=== PATIENT | female | born 1960 | race African-American/Black ===

== ENCOUNTER 2017-02-23 11:41 | Emergency (ER) | payer MEDICARE, MEDICAID ==
[~2017-02-23] VITALS: Ht 180.3 cm; Wt 90.9 kg
[~2017-02-23 11:41] MED LIST: AMOXICILLIN500 MG PO; BACTRIM DS1 TAB PO; BENADRYL 50MG C50 MG PO; BENTYL20 MG PO; CIMETIDINE400 M1 PO; CITALOPRAM20 MG PO; DONNATA1 PO; GABAPENTIN300 MG PO; LISINOPRIL10 MG PO; LORTAB 5 OR; LORTAB5 OR; LYRICA100 MG PO; LYRICA150 MG OR; LYRICA20 MG/ML; LYRICA50 MG PO; MUPIROCIN2 % EX; NAPROSYN500 MG PO; NO HOME MEDS; PREDNISONE10 MG PO
[2017-02-23] MEDS ORDERED: LIPITOR20 M1 PO (12:00)
[2017-02-23] MEDS ORDERED: LISINOPRIL20 M1 PO (13:02)
[2017-02-23] MEDS ORDERED: ATORVASTATIN CA20 MG PO (13:02)
[2017-02-23] MEDS ORDERED: HYDROMORPHON8 MG PO (13:04)
[2017-02-23] MEDS ORDERED: TORADOL PO (13:15)
[2017-02-23 13:20] VITALS: BP 129/74
== END 2017-02-23 13:20 | disposition home or self-care (01) ==
LOC: ED 11:41
DX: S39.012A Strain of muscle, fascia and tendon of lower back, initial encounter (principal); I10 Essential (primary) hypertension; Z85.43 Personal history of malignant neoplasm of ovary; X58.XXXA Exposure to other specified factors, initial encounter

== ENCOUNTER 2017-04-21 01:10 | Emergency (ER) | payer MEDICARE, MEDICAID ==
[~2017-04-21] VITALS: Ht 180.3 cm; Wt 108.0 kg
[~2017-04-21 01:10] MED LIST changes: +ATORVASTATIN CA20 MG PO; +LIPITOR20 M1 PO; +LISINOPRIL20 M1 PO; +TORADOL PO
[2017-04-21] MEDS ORDERED: HYDROMORPHON8 MG PO (01:44)
[2017-04-21] MEDS ORDERED: LOTRISONE CREAM15 GM EX (03:13)
[2017-04-21 04:03] VITALS: BP 132/69
== END 2017-04-21 04:08 | disposition home or self-care (01) ==
LOC: ED 01:10
DX: B35.4 Tinea corporis (principal)

== ENCOUNTER 2018-06-04 07:14 | Day surgery (SDC) | payer MEDICARE, MEDICAID ==
[~2018-06-04] VITALS: Ht 180.3 cm; Wt 104.3 kg
[~2018-06-04 07:14] MED LIST changes: +HYDROMORPHON8 MG PO; +LOTRISONE CREAM15 GM EX; +LOVASTATIN10 M1 PO; +METFORMIN500 M2 PO; +ZESTRIL10 M1 PO
[2018-06-04 10:11] VITALS: BP 121/69
== END 2018-06-04 09:00 | disposition home or self-care (01) ==
LOC: ENDO 07:14
PROVIDERS: ATTEND Surgery
PROC: 0DJD8ZZ Inspection of Lower Intestinal Tract, Via Natural or Artificial Opening Endoscopic (ICD-10-PCS; principal; 2018-06-04)
DX: Z12.11 Encounter for screening for malignant neoplasm of colon (principal); Z85.43 Personal history of malignant neoplasm of ovary

== ENCOUNTER 2018-07-23 22:32 | Emergency (ER) | payer MEDICARE, MEDICAID ==
[~2018-07-23] VITALS: Ht 180.3 cm; Wt 103.0 kg
[2018-07-23] MEDS ORDERED: GENTAMICIN0.31 OS (23:17)
[2018-07-23] MEDS ORDERED: MOTRIN400 MG PO (23:18)
[2018-07-23 23:26] VITALS: BP 140/82
== END 2018-07-23 23:30 | disposition home or self-care (01) ==
LOC: ED 22:32
DX: H10.9 Unspecified conjunctivitis (principal); I10 Essential (primary) hypertension

== ENCOUNTER 2018-09-20 13:32 | Emergency (ER) | payer MEDICARE, MEDICAID ==
[~2018-09-20] VITALS: Ht 180.3 cm; Wt 100.0 kg
[~2018-09-20 13:32] MED LIST changes: +GENTAMICIN0.31 OS; +MOTRIN400 MG PO
[2018-09-20 14:27] VITALS: BP 131/83
== END 2018-09-20 14:35 | disposition home or self-care (01) ==
LOC: ED 13:32
DX: S61.210A Laceration without foreign body of right index finger without damage to nail, initial encounter (principal); I10 Essential (primary) hypertension; E11.9 Type 2 diabetes mellitus without complications; E78.00 Pure hypercholesterolemia, unspecified; X58.XXXA Exposure to other specified factors, initial encounter

== ENCOUNTER → 2018-12-26 | Outpatient (REF) | payer MEDICARE, MEDICAID | END | disposition home or self-care (01) | LOC: LAB 08:40 | PROVIDERS: ATTEND Student in an Organized Health Care Education/Training Program | DX: C56.9 Malignant neoplasm of unspecified ovary (principal) ==

== ENCOUNTER → 2019-01-29 | Outpatient (REF) | payer MEDICARE, MEDICAID | END | disposition home or self-care (01) | LOC: LAB 09:41 | PROVIDERS: ATTEND Student in an Organized Health Care Education/Training Program | DX: C56.9 Malignant neoplasm of unspecified ovary (principal) ==

== ENCOUNTER 2019-05-22 05:33 | Emergency (ER) | payer MEDICARE, MEDICAID ==
[~2019-05-22] VITALS: Ht 180.3 cm; Wt 108.0 kg
[2019-05-22] MEDS ORDERED: TRIPLE ANTI6 EX (06:13)
[2019-05-22 06:23] VITALS: BP 138/86
== END 2019-05-22 06:23 | disposition home or self-care (01) ==
LOC: ED 05:33
DX: S90.812A Abrasion, left foot, initial encounter (principal); I10 Essential (primary) hypertension; E11.9 Type 2 diabetes mellitus without complications; X58.XXXA Exposure to other specified factors, initial encounter

== ENCOUNTER 2020-05-30 18:05 | Emergency (ER) | payer MEDICARE, MEDICAID ==
[~2020-05-30] VITALS: Ht 180.3 cm; Wt 110.0 kg
[~2020-05-30 18:05] MED LIST changes: +TRIPLE ANTI6 EX
[2020-05-30 19:05] LABS: HEMATOCRIT 30.8 % (37.0-47.0); HEMOGLOBIN 9.6 g/dl (12.0-16.0); IMMATURE GRANULOCYTES 0.2 % (0.0-5.0); MEAN CELL VOLUME 69.5 fL CALC (80.0-100.0); MEAN CORPUSCULAR HGB 21.7 pG CALC (26.0-32.0); MEAN CORPUSCULAR HGB CONC 31.2 g/dL CAL (32.0-36.0); NEUT# 4.27 thou/uL (2.00-7.15); RED BLOOD COUNT 4.43 mill/uL (4.20-5.60); RED CELL DISTRI WIDTH 15.3 % (11.5-15.5)
[2020-05-30 19:13] LABS: ALBUMIN 3.9 g/dL (3.2-5.0); ALKALINE PHOSPHATASE 88 u/l (38-126); ANION GAP 9 (6-22 (CALC)); BILIRUBIN, TOTAL 0.3 mg/dL (0.0-1.4); BUN 11 mg/dL (7-17); BUN/CREATININE RATIO 11 (12-20 (CALC)); CARBON DIOXIDE 27 mmol/l (22-30); CHLORIDE 105 mmol/l (95-108); GFR 57 ML/MIN (>=60 (CALC)); GFR FOR AFR.AMER. > 60 ML/MIN (>=60 (CALC)); LIPASE 115 u/l (23-300); POTASSIUM 2.9 mmol/l (3.5-5.1); SGOT/AST 21 u/l (14-36); SODIUM 138 mmol/l (137-146); TOTAL PROTEIN 7.7 g/dL (6.3-8.2)
[2020-05-30 19:54] LABS: URINE BILIRUBIN - DIPSTICK NEGATIVE (NEGATIVE); URINE BLOOD DIPSTICK NEGATIVE (NEGATIVE); URINE COLOR YELLOW; URINE GLUCOSE - DIPSTICK NEGATIVE (NEGATIVE); URINE KETONE NEGATIVE (NEGATIVE); URINE LEUK ESTERASE NEGATIVE (NEGATIVE); URINE NITRITE - DIPSTICK NEGATIVE (Negative); URINE PROTEIN - DIPSTICK NEGATIVE (NEG-TRACE); URINE SPECIFIC GRAVITY 1.015
[2020-05-30 20:14] VITALS: BP 144/77
[2020-05-30] MEDS ORDERED: K-DUR/KLOR-CON20 MEQ PO ×2 (20:15)
[2020-05-30] MEDS ORDERED: ZOFRAN4 MG/TAB PO ×2 (20:15)
--- NOTE | 2020-06-02 16:15 | NUR ---
Notified patient of positive Covid results. Patient very upset and tearful. Patient denies difficulty breathing or fever. Advised patient to quarantine until contacted by the [facility] with further instructions. Advised patient to retrn to ED with any difficulty breathing or other urgent needs. Patient verbalized understanding.
== END 2020-05-30 20:15 | disposition home or self-care (01) ==
LOC: ED 18:05
PROVIDERS: Family Medicine
DX: U07.1 COVID-19 (principal); E87.6 Hypokalemia; I10 Essential (primary) hypertension; E11.9 Type 2 diabetes mellitus without complications; Z79.84 Long term (current) use of oral hypoglycemic drugs

== ENCOUNTER 2020-08-06 09:07 | Emergency (ER) | payer MEDICARE, MEDICAID ==
[~2020-08-06] VITALS: Ht 180.3 cm; Wt 104.2 kg
[~2020-08-06 09:07] MED LIST changes: +K-DUR/KLOR-CON20 MEQ PO; +ZOFRAN4 MG/TAB PO
[2020-08-06 09:40] VITALS: BP 106/76
[2020-08-06] MEDS ORDERED: CEPHALEXIN500 M1 PO (09:42)
[2020-08-06] MEDS ORDERED: NEOSPORI2 EX (09:42)
== END 2020-08-06 09:58 | disposition home or self-care (01) ==
LOC: ED 09:07
DX: S30.811A Abrasion of abdominal wall, initial encounter (principal); L08.9 Local infection of the skin and subcutaneous tissue, unspecified; I10 Essential (primary) hypertension; E11.9 Type 2 diabetes mellitus without complications; X58.XXXA Exposure to other specified factors, initial encounter

== ENCOUNTER 2020-09-07 22:53 | Emergency (ER) | payer MEDICARE, MEDICAID ==
[~2020-09-07] VITALS: Ht 180.3 cm; Wt 109.0 kg
[~2020-09-07 22:53] MED LIST changes: +CEPHALEXIN500 M1 PO; +NEOSPORI2 EX
[2020-09-07 23:30] VITALS: BP 101/63
[2020-09-07] MEDS ORDERED: [UNRECOGNIZED DRUG - OTHER] TOP (23:36)
== END 2020-09-07 23:30 | disposition home or self-care (01) ==
LOC: ED 22:53
DX: B85.3 Phthiriasis (principal); I10 Essential (primary) hypertension; E11.9 Type 2 diabetes mellitus without complications

== ENCOUNTER 2020-09-10 00:43 | Emergency (ER) | payer MEDICARE, MEDICAID ==
[~2020-09-10] VITALS: Ht 180.3 cm; Wt 109.0 kg
[~2020-09-10 00:43] MED LIST changes: +[UNRECOGNIZED DRUG - OTHER] TOP
[2020-09-10] MEDS ORDERED: BENADRY2 EX (01:21)
[2020-09-10 02:12] VITALS: BP 115/61
== END 2020-09-10 02:12 | disposition home or self-care (01) ==
LOC: ED 00:43
DX: R21 Rash and other nonspecific skin eruption (principal); I10 Essential (primary) hypertension; E11.9 Type 2 diabetes mellitus without complications

== ENCOUNTER 2021-02-27 | Emergency (ER) | payer OTHER, MEDICARE, MEDICAID ==
[~2021-02-27] MED LIST changes: +BENADRY2 EX
[2021-02-27] MEDS ORDERED: GLIPIZIDE ER5 M1 PO (15:59)
[2021-02-27] MEDS ORDERED: LISINOPRIL5 MG PO (16:00)
[2021-02-27] MEDS ORDERED: FLEXERIL5 M1 PO (17:52)
== END 2021-02-27 18:40 | disposition home or self-care (01) | DRG 563 ==
DX: S29.012A Strain of muscle and tendon of back wall of thorax, initial encounter (principal); I10 Essential (primary) hypertension; E11.40 Type 2 diabetes mellitus with diabetic neuropathy, unspecified; Z79.84 Long term (current) use of oral hypoglycemic drugs; V43.62XA Car passenger injured in collision with other type car in traffic accident, initial encounter

== ENCOUNTER 2021-07-17 13:30 | Emergency (ER) | payer MEDICARE, MEDICAID ==
[~2021-07-17] VITALS: Ht 180.3 cm; Wt 114.0 kg
[~2021-07-17 13:30] MED LIST changes: +FLEXERIL5 M1 PO; +GLIPIZIDE ER5 M1 PO; +LISINOPRIL5 MG PO
[2021-07-17 15:48] VITALS: BP 120/72
== END 2021-07-17 15:52 | disposition home or self-care (01) ==
LOC: ED 13:30
DX: S10.96XA Insect bite of unspecified part of neck, initial encounter (principal); I10 Essential (primary) hypertension; E11.40 Type 2 diabetes mellitus with diabetic neuropathy, unspecified; E78.00 Pure hypercholesterolemia, unspecified; Z79.84 Long term (current) use of oral hypoglycemic drugs; W57.XXXA Bitten or stung by nonvenomous insect and other nonvenomous arthropods, initial encounter

== ENCOUNTER 2022-07-23 06:02 | Emergency (ER) | payer MEDICARE, MEDICAID ==
[~2022-07-23] VITALS: Ht 180.3 cm; Wt 104.5 kg
[2022-07-23] MEDS ORDERED: VOLTAREN75 MG PO (06:53)
[2022-07-23 06:55] VITALS: BP 99/48
[2022-07-24] MEDS ORDERED: TRAMADOL HYDROC50 M1 PO (17:07)
[2022-07-25] MEDS ORDERED: TRAMADOL HYDROC50 M1 PO (11:05)
== END 2022-07-23 07:06 | disposition home or self-care (01) ==
LOC: ED 06:02
DX: M25.552 Pain in left hip (principal); I10 Essential (primary) hypertension; E78.00 Pure hypercholesterolemia, unspecified; E11.40 Type 2 diabetes mellitus with diabetic neuropathy, unspecified; Z79.84 Long term (current) use of oral hypoglycemic drugs

== ENCOUNTER 2022-07-24 16:30 | Emergency (ER) | payer MEDICARE, MEDICAID ==
[~2022-07-24] VITALS: Ht 180.3 cm; Wt 104.3 kg
[~2022-07-24 16:30] MED LIST changes: +VOLTAREN75 MG PO
[2022-07-24 16:46] VITALS: BP 127/83
[2022-07-24 17:01] VITALS: BP 140/111
[2022-07-24] MEDS ORDERED: TRAMADOL HYDROC50 M1 PO (17:07)
[2022-07-24 17:16] VITALS: BP 119/81
[2022-07-24 17:30] VITALS: BP 136/79
[2022-07-24 17:45] VITALS: BP 126/75
[2022-07-24 17:56] VITALS: BP 126/75
[2022-07-25] MEDS ORDERED: TRAMADOL HYDROC50 M1 PO (11:05)
== END 2022-07-24 18:01 | disposition home or self-care (01) ==
LOC: ED 16:30
DX: M25.552 Pain in left hip (principal)

== ENCOUNTER 2022-11-29 10:48 | Emergency (ER) | payer MEDICARE, MEDICAID ==
[~2022-11-29] VITALS: Ht 180.3 cm; Wt 104.5 kg
[~2022-11-29 10:48] MED LIST changes: +TRAMADOL HYDROC50 M1 PO
[2022-11-29] MEDS ORDERED: TRAMADOL HYDROC50 M1 PO (13:46)
[2022-11-29] MEDS ORDERED: NAPROXEN500 MG PO (13:46)
[2022-11-29 14:20] VITALS: BP 127/76
== END 2022-11-29 14:18 | disposition home or self-care (01) ==
LOC: ED 10:48
DX: M79.605 Pain in left leg (principal); M79.89 Other specified soft tissue disorders; I10 Essential (primary) hypertension; E11.40 Type 2 diabetes mellitus with diabetic neuropathy, unspecified; E78.00 Pure hypercholesterolemia, unspecified; E66.9 Obesity, unspecified; Z85.9 Personal history of malignant neoplasm, unspecified; Z79.84 Long term (current) use of oral hypoglycemic drugs

== ENCOUNTER 2023-12-03 11:26 | Emergency (ER) | payer MEDICARE, MEDICAID ==
[2023-12-03] VITALS (13 sets, daily range): BP systolic 93–117; BP diastolic 61–80
[~2023-12-03] VITALS: Ht 180.3 cm; Wt 109.1 kg
[~2023-12-03 11:26] MED LIST changes: +NAPROXEN500 MG PO
[2023-12-03] MEDS ORDERED: NAPROXEN500 MG PO (13:58)
[2023-12-03] MEDS ORDERED: TRAMADOL HYDROC50 M1 PO (13:58)
== END 2023-12-03 14:17 | disposition home or self-care (01) ==
LOC: ED 11:26
DX: M79.672 Pain in left foot (principal); I10 Essential (primary) hypertension; E11.40 Type 2 diabetes mellitus with diabetic neuropathy, unspecified; Z79.84 Long term (current) use of oral hypoglycemic drugs

== ENCOUNTER 2024-06-15 09:08 | Emergency (ER) | payer MEDICARE, MEDICAID ==
[2024-06-15] VITALS (13 sets, daily range): BP systolic 89–121; BP diastolic 62–73
[~2024-06-15] VITALS: Ht 180.3 cm; Wt 104.0 kg
[2024-06-15] MEDS ORDERED: KETOROLAC TROMETHAMINE 30 MG/ML SDV IM ONE (09:45)
== END 2024-06-15 12:25 | disposition home or self-care (01) ==
LOC: ED 09:08
DX: M79.671 Pain in right foot (principal); I10 Essential (primary) hypertension; E11.40 Type 2 diabetes mellitus with diabetic neuropathy, unspecified; E78.00 Pure hypercholesterolemia, unspecified; Z79.84 Long term (current) use of oral hypoglycemic drugs

== ENCOUNTER 2024-08-01 08:31 | Emergency (ER) | payer MEDICARE, MEDICAID ==
[~2024-08-01] VITALS: Ht 180.3 cm; Wt 90.7 kg
[2024-08-01] VITALS (8 sets, daily range): BP systolic 98–111; BP diastolic 57–70
[2024-08-01] MEDS ORDERED: KETOROLAC TROMETHAMINE 30 MG/ML SDV IM ONE (08:45)
[2024-08-01] MEDS ORDERED: VOLTAREN1%GEL TOP (08:48)
== END 2024-08-01 10:28 | disposition home or self-care (01) ==
LOC: ED 08:31
DX: M79.671 Pain in right foot (principal); I10 Essential (primary) hypertension; E11.40 Type 2 diabetes mellitus with diabetic neuropathy, unspecified; E78.00 Pure hypercholesterolemia, unspecified; Z79.84 Long term (current) use of oral hypoglycemic drugs